=== PATIENT | female | born 1990 | race African-American/Black ===

== ENCOUNTER 2017-12-25 15:37 | Emergency (ER) | payer OTHER ==
[~2017-12-25] VITALS: Ht 167.6 cm; Wt 84.0 kg
[2017-12-25 16:14] LABS: HEMATOCRIT 40.1 % (36.0-46.0); HEMOGLOBIN 13.2 G/DL (11.9-15.5); MCH 29.5 PG (29.0-34.0); MCHC 32.9 G/DL (30.0-36.0); MCV 89.5 FL (83-99); PLATELET COUNT 193 K/uL (156-360); RBC DIS.WIDTH-CV 12.2 % (11.8-14.6); RBC DIS.WIDTH-SD 40.1 % (39-53); RED BLOOD COUNT 4.48 M/uL (3.80-5.20); WHITE BLOOD COUNT 11.7 K/uL (4.1-10.2)
[2017-12-25 16:27] LABS: ALBUMIN 3.9 g/dL (3.2-4.8); CHLORIDE 111 mEq/L (99-109); POTASSIUM 3.7 mEq/L (3.7-5.4); SODIUM 138 mEq/L (136-147)
[2017-12-25 16:29] LABS: GLUCOSE 82 mg/dL (70-99)
[2017-12-25 16:30] LABS: TOTAL PROTEIN 6.8 g/dL (6.4-8.3)
[2017-12-25 16:31] LABS: TOTAL BILIRUBIN 0.7 mg/dL (0.0-1.0)
[2017-12-25 16:33] LABS: ALKALINE PHOSPHATASE 41 IU/L (3-129); CREATININE 0.7 mg/dL (0.6-1.3); GFR ESTIMATE (CALCULATED) > 59 mL/min/
[2017-12-25 16:34] LABS: UREA NITROGEN (BUN) 12 mg/dL (9-23)
[2017-12-25 16:35] LABS: AST (GOT) 26 IU/L (2-34); DIRECT BILIRUBIN 0.3 mg/dL (0.0-0.3)
[2017-12-25 16:36] LABS: ALT (GPT) 17 IU/L (3-49); LIPASE 11 U/L (1.0-51.0)
[2017-12-25 16:43] LABS: QUANTITATIVE HCG < 4.0 MIU/ML
[2017-12-25 18:03] LABS: APPEARANCE CLEAR ((CLEAR)); BILIRUBIN NEGATIVE; BLOOD NEGATIVE; COLOR STRAW ((YELLOW)); GLUCOSE (STRIP) NEGATIVE; KETONES 20; LEUKOCYTES MODERATE; NITRITE NEGATIVE; PROTEIN (STRIP) NEGATIVE; UROBILINOGEN 0.2 MG/DL (0.2-1.0)
[2017-12-25 18:13] LABS: BACTERIA NONE SEEN /HPF; EPITHELIAL CELLS RARE /HPF; MUCUS TRACE /LPF; RED BLOOD CELLS 0-5 /HPF (0-5); WHITE BLOOD CELLS 0-5 /HPF (0-5)
[2017-12-25] MEDS ORDERED: NORCO 7.5/321 TABLET PO (20:37)
[2017-12-25 21:13] VITALS: BP 115/70
== END 2017-12-25 21:44 | disposition home or self-care (01) ==
LOC: EME 15:37
PROVIDERS: Physician Assistant
PROC: 0RSPXZZ Reposition Left Wrist Joint, External Approach (ICD-10-PCS; principal; 2017-12-25)
DX: S63.005A Unspecified dislocation of left wrist and hand, initial encounter (principal); S92.252A Displaced fracture of navicular [scaphoid] of left foot, initial encounter for closed fracture; S62.132A Displaced fracture of capitate [os magnum] bone, left wrist, initial encounter for closed fracture; S30.0XXA Contusion of lower back and pelvis, initial encounter; S00.83XA Contusion of other part of head, initial encounter; S00.81XA Abrasion of other part of head, initial encounter; W22.09XA Striking against other stationary object, initial encounter; Y93.23 Activity, snow (alpine) (downhill) skiing, snowboarding, sledding, tobogganing and snow tubing; M41.9 Scoliosis, unspecified
CPT/HCPCS: 73110; 73200; 73502; 74177; 80048; 80076; 81003; 83690; 84702; 85027; 85379; 99281; 99285; J2270; J2405; J7040